=== PATIENT | male | born 1975 | race Hispanic/Latino ===

== ENCOUNTER 2017-06-16 19:46 | Emergency (ER) | payer MEDICAID ==
[2017-06-16 19:46] VITALS: BMI 24.1
[2017-06-16 20:11] VITALS: RESP 16
--- NOTE | 2017-06-16 21:42 | CT ---
EXAM: CT Head Without Intravenous Contrast CLINICAL HISTORY: 42 years old, male; Signs and symptoms; Other: Rt eye, poss vision loss; Additional info: Headache TECHNIQUE: Axial computed tomography images of the head/brain without intravenous contrast. All CT scans at this facility use one or more dose reduction techniques, viz.: automated exposure control; ma/kV adjustment per patient size (including targeted exams where dose is matched to indication; i.e. head); or iterative reconstruction technique. Coronal and sagittal reformatted images were created and reviewed. COMPARISON: No relevant prior studies available. FINDINGS: Brain: Mild atrophy. No intracranial hemorrhage. No mass. Few scattered subtle foci of decreased attenuation within periventricular/subcortical white matter. No definite edema. Ventricles: No hydrocephalus. Bones/joints: No acute fracture. Soft tissues: Unremarkable. Sinuses: Scattered minimal mucosal thickening. Mastoid air cells: No mastoid effusion. Orbits: Unremarkable as visualized. IMPRESSION: 1. Nonspecific white matter changes. Acute infarction may be CT occult within first 24 hours. If a focal deficit persists, consider followup CT or MRI for further evaluation. 2. Incidental/non-acute findings are described above.
[2017-06-16 21:56] LABS: BASO # 0.1 K/uL (0.0-0.2); BASO % 0.9 % (0.0-2.0); EOS # 0.2 K/uL (0.0-0.7); EOS % 3.4 % (0.0-4.0); HEMOGLOBIN 15.3 g/dL (12.0-18.0); LYMPH # 1.6 K/uL (1.0-4.3); LYMPH % 22.8 % (20.0-40.0); MEAN CELL VOLUME 86.9 fl (80.0-94.0); MEAN CORPUSCULAR HEMOGLOBIN 29.8 pg (27.0-31.0); MEAN CORPUSCULAR HGB CONC 34.3 g/dL (33.0-37.0); MEAN PLATELET VOLUME 7.8 fl (7.2-11.7); MONO # 0.7 K/uL (0.0-0.8); MONO % 10.2 % (0.0-10.0); NEUT # 4.3 K/uL (1.8-7.0); NEUT % 62.7 % (50.0-75.0); RBC 5.14 Mil/uL (4.40-5.90); RED CELL DISTRIBUTION WIDTH 14.3 % (11.5-14.5); WHITE BLOOD COUNT 6.9 K/uL (4.8-10.8)
[2017-06-16 22:14] LABS: ALB/GLOB RATIO 1.4 (1.0-2.1); ALBUMIN 4.9 g/dL (3.5-5.0); ALT/SGPT 67 U/L (21-72); AST/SGOT 40 U/L (17-59); BLOOD UREA NITROGEN 12 mg/dl (9-20); CALCIUM 9.8 mg/dL (8.4-10.2); GFR AFRICAN-AMERICAN > 60; GFR NON-AFRICAN AMERICAN > 60
[2017-06-16] MEDS ORDERED: Iohexol 240 (50 ml) ONE (23:55)
[2017-06-17 00:01] VITALS: BP 112/72; PULSE 64; TEMP 98.4
[2017-06-17 00:15] VITALS: O2SAT 99
--- NOTE | 2017-06-17 00:15 | ED PDOC ---
HPI: General Adult Time Seen by Provider: 06/16/17 20:00 Chief Complaint (Nursing): Weakness/Neurological Deficit Chief Complaint (Provider): Neurological Deficit History Per: Patient History/Exam Limitations: no limitations Current Symptoms Are (Timing): Still Present Additional Complaint(s): 42 year old male presents to ED with complaints of partial vision loss since earlier today and has a past medical history of kidney stones and back pain. Notes that he felt dizzy and saw "black spots" while on the toilet earlier today , which resolved upon standing up. Reports that his peripheral vision felt limited later on after eating. Confirms experiencing "floaters" x2 years and wears glasses regularly. Patient is not currently wearing glasses in the ED. (- ) headache, eye pain, or vomiting. no weakness or numbness. PCP: REJI Past Medical History Reviewed: Historical Data, Nursing Documentation, Vital Signs Vital Signs: Last Vital Signs Temp 98.4 F 06/17/17 00:00 Pulse 64 06/17/17 00:00 Resp 16 06/17/17 00:00 BP 112/72 06/17/17 00:00 Pulse Ox 99 06/18/17 11:09 - Medical History PMH: Gastritis, Gastrointestinal Ulcer, GERD, Hiatal Hernia, Kidney Stones, Chronic Kidney Disease Denies: Colonic Polyps, Fractures - Surgical History Surgical History: Endoscopy, Hernia Repair Other surgeries: laminectomy - Family History Family History: States: Unknown Family Hx - Living Arrangements Living Arrangements: With Family - Social History Current smoker - smoking cessation education provided: No Alcohol: None Drugs: Denies - Immunization History Hx Tetanus Toxoid Vaccination: No Hx Influenza Vaccination: No Hx Pneumococcal Vaccination: No - Home Medications Home Medications: Ambulatory Orders Medication Instructions Recorded No Known Home Med 10/19/16 - Allergies Allergies/Adverse Reactions: Allergies Allergy/AdvReac Type Severity Reaction Status Date / Time seasonal allegy Allergy CONGESTION Uncoded 10/19/16 07:50 Review of Systems ROS Statement: Except As Marked, All Systems Reviewed And Found Negative Eyes: Positive for: Vision Change (transient vision loss). Negative for: Pain Gastrointestinal: Negative for: Vomiting Neurological: Positive for: Dizziness. Negative for: Headache Physical Exam - Reviewed Nursing Documentation Reviewed: Yes Vital Signs Reviewed: Yes - Physical Exam Appears: Positive for: Non-toxic, No Acute Distress Head Exam: Positive for: ATRAUMATIC, NORMOCEPHALIC Skin: Positive for: Normal Color, Warm, Dry Eye Exam: Positive for: EOMI, Normal appearance, PERRL Neck: Positive for: Normal, Painless ROM, Supple Cardiovascular/Chest: Positive for: Regular Rate, Rhythm Respiratory: Positive for: Normal Breath Sounds. Negative for: Respiratory Distress Gastrointestinal/Abdominal: Positive for: Normal Exam, Soft. Negative for: Tenderness Extremity: Positive for: Normal ROM. 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 Negative for: Motor/Sensory Deficits , Aphasia, Facial Droop - Laboratory Results Result Diagrams: 06/16/17 21:49 06/16/17 21:49 - ECG O2 Sat by Pulse Oximetry: 99 (RA) Pulse Ox Interpretation: Normal Medical Decision Making Medical Decision Makin Initial impression: visual symptoms r/o intracranial abnormality Initial plan: * CT HEAD * Labs 2140 CT FINDINGS: Brain: Mild atrophy. No intracranial hemorrhage. No mass. Few scattered subtle foci of decreased attenuation within periventricular/subcortical white matter. No definite edema. Ventricles: No hydrocephalus. Bones/joints: No acute fracture. Soft tissues: Unremarkable. Sinuses: Scattered minimal mucosal thickening. Mastoid air cells: No mastoid effusion. Orbits: Unremarkable as visualized. IMPRESSION: 1. Nonspecific white matter changes. Acute infarction may be CT occult within first 24 hours. If a focal deficit persists, consider followup CT or MRI for further evaluation. 2. Incidental/non-acute findings are described above. 0026 Upon re-evaluation, patient is feeling better. neurologically intact. ambulating without difficulty. Patient is stable for discharge home. Instructed to follow up with floor scrubber and primary doctor. visual acuity normal. Scribe Attestation: Documented by Cristina Ryan acting as a scribe for Roxana Castañeda MD. Scribe Attestation: All medical record entries made by the Scribe were at my direction and personally dictated by me. I have reviewed the chart and agree that the record accurately reflects my personal performance of the history, physical exam, medical decision making, and the department course for this patient. I have also personally directed, reviewed, and agree with the discharge instructions and disposition. Disposition - Clinical Impression Clinical Impression: Visual distortion - Patient ED Disposition Is Patient to be Admitted: No Counseled Patient/Family Regarding: Studies Performed, Diagnosis, Need For Followup - Disposition Referrals: [facility] [Outside] [facility] [Outside] Brenden Garces MD [Staff Provider] - Disposition: Routine/Home Disposition Time: 00:00 Condition: IMPROVED Additional Instructions: follow up with your primary doctor in 1-2 days as well as the opthalmologist tomorrow. return to the ED with any worsening or concerning symptoms Instructions: Blurred Vision (ED) Forms: [employer] ([place] Islander)
--- NOTE | 2017-06-17 13:27 | CARD ---
APPROVED REPORT EKG Measurement Heart [id number] <Conclusion> Sinus bradycardia with sinus arrhythmia Possible Left atrial enlargement Incomplete right bundle branch block Borderline ECG
== END 2017-06-17 01:44 | disposition home or self-care (01) ==
LOC: H.ER 19:46
DX: H53.9 Unspecified visual disturbance (principal); K21.9 Gastro-esophageal reflux disease without esophagitis

== ENCOUNTER 2018-04-04 18:15 | Emergency (ER) | payer MEDICAID ==
[2018-04-04 18:15] VITALS: BMI 24.1
[2018-04-04 18:22] VITALS: TEMP 97.7
[2018-04-04] MEDS ORDERED: Sodium Chloride 0.9% 1,000 ML IV STA (19:24)
--- NOTE | 2018-04-04 19:33 | ED PDOC ---
HPI: Back Time Seen by Provider: 04/04/18 19:13 Chief Complaint (Nursing): Back Pain Chief Complaint (Provider): Flank pain History Per: Patient History/Exam Limitations: no limitations Onset/Duration Of Symptoms: Other (x3 weeks) Current Symptoms Are (Timing): Still Present Additional Complaint(s): 43 year old male, with a past medical history of chronic back pain and kidney stones, presents to the ED reporting flank pain for the last 3 weeks. Patient states pain is bilateral but worse on the right side and radiates around to the lower abdomen. He states pain is a burning sensation on the left side. Denies hematuria, dysuria, frequency, fever, nausea, or vomiting. He reports intermittent diarrhea and constipation which he associates with episodes of anxiety. He states he has not taken any medications for pain. Patient states that he presented to the ER today because prior to today he was too busy. PMD: [facility] Urologist: Dr. Sterling Past Medical History Reviewed: Historical Data, Nursing Documentation, Vital Signs Vital Signs: Last Vital Signs Temp 97.7 F 04/04/18 18:20 Pulse 85 04/04/18 18:20 Resp 18 04/04/18 18:20 BP 151/91 H 04/04/18 18:20 Pulse Ox 100 04/04/18 18:20 - Medical History PMH: Anxiety, Back Problems (Chronic back pain), Depression, Gastritis, Gastrointestinal Ulcer, GERD, Hiatal Hernia, Kidney Stones, Chronic Kidney Disease Denies: Colonic Polyps, Fractures - Surgical History Surgical History: Back Surgery, Endoscopy, Hernia Repair - Family History Family History: States: No Known Family Hx - Social History Current smoker - smoking cessation education provided: No Alcohol: None Drugs: Denies - Immunization History Hx Tetanus Toxoid Vaccination: No Hx Influenza Vaccination: No Hx Pneumococcal Vaccination: No - Home Medications Home Medications: Ambulatory Orders Medication Instructions Recorded RX: No Known Home Med 10/19/16 - Allergies Allergies/Adverse Reactions: Allergies Allergy/AdvReac Type Severity Reaction Status Date / Time seasonal allegy Allergy CONGESTION Uncoded 04/04/18 18:20 Review of Systems ROS Statement: Except As Marked, All Systems Reviewed And Found Negative (as per HPI) Constitutional: Negative for: Fever Gastrointestinal: Positive for: Diarrhea (intermittent), Constipation (intermittent). Negative for: Nausea, Vomiting Genitourinary Male: Negative for: Dysuria, Frequency, Hematuria Musculoskeletal: Positive for: Other (Bilateral flank pain) Physical Exam - Reviewed Nursing Documentation Reviewed: Yes Vital Signs Reviewed: Yes - Physical Exam Appears: Positive for: Well, Non-toxic, No Acute Distress Head Exam: Positive for: ATRAUMATIC, NORMOCEPHALIC Skin: Positive for: Warm, Dry Eye Exam: Positive for: EOMI, PERRL ENT: Negative for: Pharyngeal Erythema, Tonsillar Exudate Neck: Positive for: Painless ROM, Supple Cardiovascular/Chest: Positive for: Regular Rate, Rhythm. Negative for: Murmur Respiratory: Positive for: Normal Breath Sounds. Negative for: Respiratory Distress Gastrointestinal/Abdominal: Positive for: Soft. Negative for: Tenderness, Mass, Distended, Guarding, Rebound Back: Positive for: Normal Inspection. Negative for: L CVA Tenderness, R CVA Tenderness Extremity: Positive for: Normal ROM. Negative for: Deformity Lymphatic: Negative for: Adenopathy Neurologic/Psych: Positive for: Alert. Negative for: Motor/Sensory Deficits - Laboratory Results Result Diagrams: 04/04/18 19:42 04/04/18 19:42 - ECG O2 Sat by Pulse Oximetry: 100 (RA) Pulse Ox Interpretation: Normal Medical Decision Making Medical Decision Making: Initial Impression: back pain Differential includes but not limited to acute on chronic back pain, pyelonephri tis, kidney stone, back strain Initial Plan: --CT abd/pelvis --CMP --CBC --Sodium chloride 1000mL IV --Toradol 15mg IV --Tylenol 975mg PO --Urine culture --Urinalysis CT OF THE ABDOMEN AND PELVIS, RENAL STONE PROTOCOL INDICATIONS: RIGHT-SIDED FLANK PAIN, HISTORY OF RENAL CALCULI COMPARISON: NONE TECHNIQUE: VOLUMETRIC ACQUISITION OF THE ABDOMEN AND PELVIS WITHOUT CONTRAST. MULTIPLANAR REFORMATTED IMAGES.total DLP was 291. Findings: There are bilateral small renal calculi. All are nonobstructive. In the right kidney, they reside in the mid and lower pole. And the left kidney calculi are in the midpole. No hydronephrosis. No hydroureter. No extrarenal urinary calculus identified.the adrenal glands, liver, pancreas, spleen normal size position and attenuation.no gallstones.the intestinal pattern is nonobstructive. the appendix visualizes certainty. There are no right lower quadrant inflammatory change. No evidence of acute diverticulitis. The pulmonary bases are well-aerated. The heart is not enlarged. Impression: Bilateral nephrolithiasis, no extrarenal calculi, no intrarenal obstruction. Electronically signed on Apr 04, 2018 9:10:59 PM EST by: Maico Yadav M.D., Certified by [facility] pt findings and plan of care. Stable for discharge with PMD followup. Scribe Attestation: Documented by Aguilar Hugo acting as a scribe for Nichol Rome MD. Provider Scribe Attestation: All medical record entries made by the Scribe were at my direction and personally dictated by me. I have reviewed the chart and agree that the record accurately reflects my personal performance of the history, physical exam, medical decision making, and the department course for this patient. I have also personally directed, reviewed, and agree with the discharge instructions and disposition. Disposition - Clinical Impression Clinical Impression: Back pain Counseled Patient/Family Regarding: Studies Performed, Diagnosis, Need For Followup - Disposition Disposition: Routine/Home Disposition Time: 22:35 Condition: STABLE Additional Instructions: PLEASE FOLLOW UP WITH YOUR PHYSICIANS NEXT WEEK FOR FURTHER EVALUATION AND MANAGEMENT. Instructions: Chronic Pain (DC), Low Back Pain (DC), Flank Pain (DC)
[2018-04-04 19:48] LABS: BASO % 0.5 % (0.0-2.0); EOS # 0.1 K/uL (0.0-0.7); EOS % 1.5 % (0.0-4.0); HEMOGLOBIN 15.9 g/dL (12.0-18.0); LYMPH # 1.4 K/uL (1.0-4.3); LYMPH % 17.4 % (20.0-40.0); MEAN CELL VOLUME 87.7 fl (80.0-94.0); MEAN CORPUSCULAR HEMOGLOBIN 30.3 pg (27.0-31.0); MEAN CORPUSCULAR HGB CONC 34.5 g/dL (33.0-37.0); MEAN PLATELET VOLUME 7.6 fl (7.2-11.7); MONO # 0.7 K/uL (0.0-0.8); MONO % 8.9 % (0.0-10.0); NEUT # 5.9 K/uL (1.8-7.0); NEUT % 71.7 % (50.0-75.0); RBC 5.26 Mil/uL (4.40-5.90); RED CELL DISTRIBUTION WIDTH 14.1 % (11.5-14.5); WHITE BLOOD COUNT 8.2 K/uL (4.8-10.8)
[2018-04-04 19:55] LABS: URINE BILIRUBIN NEGATIVE (NEGATIVE); URINE BLOOD NEGATIVE (NEGATIVE); URINE CLARITY CLEAR (Clear); URINE COLOR STRAW (YELLOW); URINE GLUCOSE (UA) NEG (Normal); URINE LEUKOCYTE ESTERASE NEG Leu/uL (Negative); URINE PROTEIN NEGATIVE (NEGATIVE); URINE UROBILINOGEN 0.2-1.0 mg/dL (0.2-1.0)
[2018-04-04 20:01] LABS: ALB/GLOB RATIO 1.2 (1.0-2.1); ALBUMIN 4.4 g/dL (3.5-5.0); BLOOD UREA NITROGEN 14 mg/dl (9-20); CALCIUM 9.6 mg/dL (8.4-10.2); GFR NON-AFRICAN AMERICAN > 60
[2018-04-04 20:34] LABS: ALT/SGPT 55 U/L (21-72); AST/SGOT 42 U/L (17-59)
[2018-04-04 22:48] VITALS: BP 142/95; PULSE 75; RESP 17
--- NOTE | 2018-04-05 07:04 | CT ---
Date of service: 04/04/2018 PROCEDURE: CT Abdomen and Pelvis without intravenous contrast HISTORY: back/flank pain h/o renal calculi COMPARISON: None. TECHNIQUE: Technique. Contrast dose: Radiation dose: Total exam DLP = 291.59 mGy-cm. This CT exam was performed using one or more of the following dose reduction techniques: Automated exposure control, adjustment of the mA and/or kV according to patient size, and/or use of iterative reconstruction technique. FINDINGS: LOWER THORAX: Unremarkable. LIVER: Unremarkable. No gross lesion or ductal dilatation. GALLBLADDER AND BILE DUCTS: Unremarkable. PANCREAS: Unremarkable. No gross lesion or ductal dilatation. SPLEEN: Unremarkable. ADRENALS: Unremarkable. No mass. KIDNEYS AND URETERS: Bilateral nonobstructive nephrolithiasis. VASCULATURE: Unremarkable. No aortic aneurysm. No aortic atherosclerotic calcification or mural plaque present. BOWEL: Unremarkable. No obstruction. No gross mural thickening. APPENDIX: Unremarkable. Normal appendix. PERITONEUM: Unremarkable. No free fluid. No free air. LYMPH NODES: Unremarkable. No enlarged lymph nodes. BLADDER: Unremarkable. REPRODUCTIVE: Unremarkable. BONES: No acute fracture. Status post lumbar surgery. OTHER FINDINGS: None. IMPRESSION: Bilateral nephrolithiasis.
[2018-04-07 15:23] VITALS: O2SAT 100
== END 2018-04-04 22:47 | disposition home or self-care (01) ==
LOC: H.ER 18:15
DX: M54.9 Dorsalgia, unspecified (principal); R10.9 Unspecified abdominal pain; N20.0 Calculus of kidney
CPT/HCPCS: 74176; 80053; 81003; 85025; 87086; 96360; 99283; J7030